=== PATIENT | male | born 1945 | race Caucasian/White ===

== ENCOUNTER 2018-12-13 11:59 | Inpatient (IN) ==
[2018-12-13] MEDS ORDERED: ceFAZolin 1,000 MG VIAL ONE ×2 (13:50→14:12)
[2018-12-13] MEDS ORDERED: MAGNESIUM HYDROXIDE SUSP 30 ML UDCUP PO PRN (14:54)
[2018-12-13] MEDS ORDERED: ONDANSETRON 4 MG/2 ML VIAL IV PRN (15:00)
[2018-12-13] MEDS ORDERED: ONDANSETRON 4 MG/2 ML VIAL ONE ×2 (15:00→15:08)
[2018-12-13] MEDS ORDERED: HYDROmorphone 2 MG/1 ML VIAL ONE (15:01)
[2018-12-13] MEDS: HYDROmorphone 2 MG/1 ML VIAL IV PRN ×4 (15:05→15:20)
[2018-12-13] MEDS ORDERED: PROPOFOL 200 MG/20 ML VIAL IV ONE (15:07)
[2018-12-13] MEDS ORDERED: SEVOFLURANE 1 UNIT/15 MINUTE INH ONE (15:07)
[2018-12-13] MEDS ORDERED: DEXAMETHASONE 4 MG/1 ML VIAL ONE (15:08)
[2018-12-13] MEDS ORDERED: LACTATED RINGERS 1,000 ML IV ONE (15:08)
[2018-12-13] MEDS ORDERED: SUCCINYLCHOLINE 200 MG/10 ML VIAL ONE (15:08)
[2018-12-13] MEDS ORDERED: fentaNYL 100 MCG/2 ML VIAL ONE (15:08)
[2018-12-13] MEDS ORDERED: PHENYLEPHRINE 1 MG/10 ML SYRINGE IV ONE (15:08)
[2018-12-13] MEDS ORDERED: NEOSTIGMINE 10 MG/10 ML VIAL ONE (15:08)
[2018-12-13] MEDS ORDERED: ROCURONIUM 100 MG/10 ML VIAL IV ONE (15:08)
[2018-12-13] MEDS ORDERED: GLYCOPYRROLATE 0.4 MG/2 ML VIAL ONE (15:08)
[2018-12-13] MEDS: ceFAZolin 2,000 MG in PREMIX 1 EACH IV SCH (22:14)
[2018-12-14] MEDS: ceFAZolin 2,000 MG in PREMIX 1 EACH IV SCH (05:14)
[2018-12-14] MEDS ORDERED: ASPIRIN EC 325 MG TABLET PO SCH (09:00)
[2018-12-14] MEDS ORDERED: amLODIPine 10 MG TABLET PO SCH ×2 (09:00→09:05)
[2018-12-14 13:12] VITALS: BP 120/65
== END 2018-12-14 15:08 | disposition home or self-care (01) | DRG 581 ==
LOC: EDUNIT# → EDBD → N.ED 11:59 → N.3E 14:55 → N.3EOUT 16:00 → N.3E 16:01
PROVIDERS: ADMIT Orthopaedic Surgery; ATTEND Orthopaedic Surgery